=== PATIENT | male | born 1950 | race Hispanic/Latino ===

== ENCOUNTER 2018-05-02 10:19 | Emergency (ER) | payer OTHER ==
[2018-05-02] MEDS ORDERED: FLUORESCEIN SODIUM 0.6 MG/WRAP ONE ×2 (11:44)
[2018-05-02] MEDS ORDERED: TETRACAINE HCL 0.5% 2ML OPTH ONE ×2 (11:44)
[2018-05-02] MEDS ORDERED: NEO/BAC/POLY/HC OPTH OINT ONE (11:44)
--- NOTE | 2018-05-02 12:00 | EDPHYS ---
Physician Documentation [facility] Name: Naseem Sanches Jr Age: 67 yrs Sex: Male : 1950 Arrival Date: 05/02/2018 Time: 10:23 Bed 23 Private MD: Mukul Funez E ED Physician Tima Lan HPI: 05/02 11:02 This 67 yrs old Male presents to ER via Ambulatory with complaints of Eye cp Injury, Blurred Vision. 11:02 The patient is experiencing blurred vision, pain, redness, to the right eye. Onset: The cp symptoms/episode began/occurred yesterday. Patient does not utilize any form of vision correction. 11:02 Associated signs and symptoms: Pertinent negatives: dizziness, ear ache, fever, cp headache. 11:02 Severity of symptoms: in the emergency department the symptoms are unchanged despite cp home interventions. 11:02 Patient reports he was mowing yard yesterday when he felt like something struck him in cp the right eye. Patient reports history of vision loss in left eye. Historical: - Allergies: 10:37 No Known Allergies; aj1 - Home Meds: 10:37 None [Active]; aj1 - PMHx: 10:37 None; aj1 - PSHx: 10:37 None; aj1 - Immunization history:: Flu vaccine is not up to date. - Social history:: Smoking status: Patient/guardian denies using tobacco. - Ebola Screening: : Patient denies travel to an Ebola-affected area in the 21 days before illness onset. ROS: 11:10 Constitutional: Negative for body aches, chills, fever, poor PO intake. cp 11:10 Eyes: Positive for pain, redness, of the right eye, Negative for discharge, cp photophobia, vision loss. 11:10 ENT: Negative for drainage from ear(s), ear pain, sore throat, difficulty swallowing, difficulty handling secretions. 11:10 Cardiovascular: Negative for chest pain, edema, palpitations. 11:10 Respiratory: Negative for cough, shortness of breath, wheezing. 11:10 Abdomen/GI: Negative for abdominal pain, nausea, vomiting, and diarrhea. 11:10 Skin: Negative for cellulitis, rash. 11:10 Neuro: Negative for dizziness, headache, weakness. 11:10 All other systems are negative. Exam: 11:47 Visual Acuity: I have reviewed the nursing documentation. cp 11:47 Head/Face: Normocephalic, atraumatic. 11:47 Constitutional: The patient appears in no acute distress, alert, awake, non-toxic, well developed, well nourished. 11:47 Eyes: Periorbital structures: appear normal, Pupils: equal, round, and reactive to light and accomodation, Extraocular movements: intact throughout, Conjunctiva: subconjunctival hemorrhage(s), seen in the right eye, large, extending from approximately 3 o'clock area to 9 o'clock area, Corneas: abrasion, that is small, on the right, at 9 o'clock, foreign body, is not appreciated, a fluorescein strip employed to appreciate the findings, Anterior chamber: normal, no hyphema, on appreciated narrow angle closure, Lids and lashes: appear normal, on the right, other eye negative for acute changes. 11:47 ENT: External ear(s): are unremarkable, Nose: is normal, Mouth: Lips: moist, Oral mucosa: moist, Posterior pharynx: is normal, airway is patent. 11:47 Neck: ROM/movement: is normal, is supple, without pain, no range of motions limitations, no nuchal rigidity. 11:47 Chest/axilla: Inspection: normal. 11:47 Cardiovascular: Rate: normal. 11:47 Respiratory: the patient does not display signs of respiratory distress, Respirations: normal, no use of accessory muscles, no retractions, no splinting, no tachypnea. 11:47 Skin: cellulitis, is not appreciated, no rash present. Vital Signs: 10:37 BP 120 / 68; Pulse 60; Resp 18; Temp 97.5; Pulse Ox 95% on R/A; Weight 82.1 kg (R); aj1 Height 5 ft. 7 in. 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 cp 11:00 Differential diagnosis: Corneal abrasion of right eye. Foreign body in right eye. Acute cp iritis of right eye. Infectious conjunctivitis in. 12:00 Data reviewed: vital signs, nurses notes, and as a result, I will discharge patient. 12:00 Counseling: I had a detailed discussion with the patient and/or guardian regarding: the cp historical points, exam findings, and any diagnostic results supporting the discharge/admit diagnosis, the need for outpatient follow up, an opthalmologist, to return to the emergency department if symptoms worsen or persist or if there are any questions or concerns that arise at home. 05/02 10:57 Order name: Visual Acuity; Complete Time: 11:34 cp 05/02 10:57 Order name: Eye Tray; Complete Time: 11:38 cp 05/02 10:57 Order name: Fluoresene Opth strip; Complete Time: 11:38 cp Administered Medications: 11:51 Drug: Tetracaine Drops 0.5 % 1 drops Route: Ophthalmic; Site: right eye; ss 12:09 Drug: Gentamicin Drops 0.3 % 2 drops Route: Ophthalmic; Site: right eye; 12:09 Follow up: Response: Medication administered at discharge. Disposition: 12:30 Chart complete. cp 18:15 Co-signature as Attending Physician, Tima Lan MD. Disposition: 05/02/18 12:00 Discharged to Home. Impression: Injury of conjunctiva and corneal abrasion without foreign body, right eye, Right Subconjunctival Hemorrhage. - Condition is Stable. - Discharge Instructions: Corneal Abrasion, Subconjunctival Hemorrhage. - Prescriptions for Gentamicin 0.3 % Ophthalmic Drops - instill 1 drop by OPHTHALMIC route every 4 hours for 7 days; 1 bottle. - Medication Reconciliation Form, Thank You Letter, Antibiotic Education, Prescription Opioid Use form. - Follow up: Fantasma Ortiz MD; When: 1 - 2 days; Reason: Recheck today's complaints. - Problem is new. - Symptoms have improved. Signatures: Parisa Cervantes RN RN aj1 Julianna Nugyen RN RN ss Steven Guzman PA PA Tima Meier MD MD gs Corrections: (The following items were deleted from the chart) 12:12 12:00 05/02/2018 12:00 Discharged to Home. Impression: Injury of conjunctiva and ss corneal abrasion without foreign body, right eye; Right Subconjunctival Hemorrhage. Condition is Stable. Forms are Medication Reconciliation Form, Thank You Letter, Antibiotic Education, Prescription Opioid Use. Follow up: Fantasma Ortiz; When: 1 - 2 days; Reason: Recheck today's complaints. Problem is new. Symptoms have improved. cp
--- NOTE | 2018-05-02 12:00 | ER ---
Nurse's Notes [facility] Name: Naseem Sanches Jr Age: 67 yrs Sex: Male : 1950 Arrival Date: 05/02/2018 Time: 10:23 Bed 23 Private MD: Mukul Funez E Diagnosis: Injury of conjunctiva and corneal abrasion without foreign body, right eye;Right Subconjunctival Hemorrhage Presentation: 05/02 10:35 Presenting complaint: Patient states: He was mowing the yard yesterday and something aj1 hit him in the left eye. Reports pain to left eye, blurred vision. Dark red discoloration noted to lower part of sclera. Transition of care: patient was not received from another setting of care. The patient reports a positive loss of vision. The patient's loss of vision began 1 day ago. Onset of symptoms was May 01, 2018. Risk Assessment: Do you want to hurt yourself or someone else? Patient reports no desire to harm self or others. Initial Sepsis Screen: Does the patient meet any 2 criteria? No. Patient's initial sepsis screen is negative. Does the patient have a suspected source of infection? No. Patient's initial sepsis screen is negative. Care prior to arrival: None. 10:35 Method Of Arrival: Ambulatory aj1 10:35 Acuity: PARVIZ 2 aj1 Triage Assessment: 10:37 General: Appears in no apparent distress. comfortable, Behavior is calm, cooperative, aj1 appropriate for age. Pain: Complains of pain in right eye Pain currently is 5 out of 10 on a pain scale. EENT: Sclera/Cornea are reddened in outer aspect of conjuctiva of right eye and inner aspect of conjuctiva of right eye Reports blurred vision. Neuro: Level of Consciousness is awake, alert, obeys commands. Cardiovascular: Patient's skin is warm and dry. Respiratory: Airway is patent Respiratory effort is even, unlabored, Respiratory pattern is regular, symmetrical. Historical: - Allergies: 10:37 No Known Allergies; aj1 - Home Meds: 10:37 None [Active]; aj1 - PMHx: 10:37 None; aj1 - PSHx: 10:37 None; aj1 - Immunization history:: Flu vaccine is not up to date. - Social history:: Smoking status: Patient/guardian denies using tobacco. - Ebola Screening: : Patient denies travel to an Ebola-affected area in the 21 days before illness onset. Screenin:29 Abuse screen: Denies threats or abuse. Denies injuries from another. Nutritional ss screening: No deficits noted. Tuberculosis screening: Never had TB. Fall Risk None identified. Vital Signs: 10:37 BP 120 / 68; Pulse 60; Resp 18; Temp 97.5; Pulse Ox 95% on R/A; Weight 82.1 kg (R); aj1 Height 5 ft. 7 in. 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 as 10:23 Mukul Funez MD is Private Physician. as 10:36 Triage completed. aj1 10:37 Arm band placed on Patient placed in waiting room, Patient notified of wait time. aj1 10:55 Steven Guzman PA is PHCP. cp 10:55 Tima Lan MD is Attending Physician. cp 11:29 Julianna Nguyen, OSCAR is Primary Nurse. ss 11:29 Patient has correct armband on for positive identification. Bed in low position. Call ss light in reach. Side rails up X 1. 11:54 Fantasma Ortiz MD is Referral Physician. cp 12:11 No provider procedures requiring assistance completed. Patient did not have IV access ss during this emergency room visit. Administered Medications: 11:51 Drug: Tetracaine Drops 0.5 % 1 drops Route: Ophthalmic; Site: right eye; ss 12:09 Drug: Gentamicin Drops 0.3 % 2 drops Route: Ophthalmic; Site: right eye; ss 12:09 Follow up: Response: Medication administered at discharge. ss Outcome: 12:00 Discharge ordered by . cp 12:[address] Ortiz's office ss 12:11 Condition: good 12:11 Discharge instructions given to patient, family, Instructed on discharge instructions, follow up and referral plans. Demonstrated understanding of instructions, follow-up care, medications, Prescriptions given X 1. 12:12 Patient left the ED. ss Signatures: Parisa Cervantes RN RN aj1 Yahaira Tovar Shelby, RN RN ss Megan, KATIE Harris PA cp
[2018-05-02] MEDS ORDERED: GENTAMICIN 0.3% OPTH DROP 5ML ONE (12:10)
== END 2018-05-02 12:12 | disposition home or self-care (01) ==
LOC: ER 10:19
DX: S05.01XA Injury of conjunctiva and corneal abrasion without foreign body, right eye, initial encounter (principal); H11.31 Conjunctival hemorrhage, right eye; X58.XXXA Exposure to other specified factors, initial encounter; Y93.H9 Activity, other involving exterior property and land maintenance, building and construction; Y92.89 Other specified places as the place of occurrence of the external cause
CPT/HCPCS: 99283

== ENCOUNTER 2018-06-05 10:14 | Day surgery (SDC) | payer OTHER ==
[2018-06-04 10:32] LABS: Absolute Lymphocytes (CBC) 0.9 K/uL (0.7-4.9); Absolute Monocytes 0.6 K/uL (0.1-1.3); Absolute Neutrophil 5.3 K/uL (1.8-8.0); Basophils % 0.6 % (0-1.3); Lymphocytes % 12.8 % (15.3-44.8); MCH 32.5 pg (27.0-35.0); MCV 93.4 fL (80-100); MPV 10.1 fL (7.6-11.3); Monocytes % 8.7 % (3.3-12.3); RBC Red Blood Cell Count 5.35 M/uL (4.33-5.43)
[2018-06-04 10:33] LABS: Urine Appearance CLEAR; Urine Bilirubin NEGATIVE (NEG); Urine Blood 3+ (NEG); Urine Color YELLOW; Urine Glucose NEGATIVE (NEG); Urine Protein 1+ (NEG); Urine Urobilinogen 0.2 mg/dL (0.2-1.0)
[2018-06-04 10:35] LABS: Urine Microscopic Reflex ORDER UMIC
[2018-06-04 10:36] LABS: Protime INR 1.08
--- NOTE | 2018-06-04 10:44 | RAD REPORT ---
EXAM DESCRIPTION: RAD - Chest Pa And Lat (2 Views) - 06/04/2018 10:02 am CLINICAL HISTORY: Preop chest, patient pending bladder and kidney surgery COMPARISON: None. TECHNIQUE: PA and lateral views of the chest were obtained. FINDINGS: The lungs are clear. Heart size is normal and central vasculature is within normal limit s. No pleural effusion or pneumothorax seen. No acute bony finding noted. No aortic abnormality. IMPRESSION: No acute cardiopulmonary process.
[2018-06-04 10:50] LABS: Urine Bacteria 20-50 /HPF (NONE SEEN); Urine Culture Reflex Order NOT NEEDED; Urine Mucus SLIGHT /HPF (NONE SEEN); Urine RBC >50 /HPF (NONE SEEN)
[2018-06-04 10:53] LABS: Phosphorus 2.7 mg/dL (2.5-4.9); Uric Acid 4.1 mg/dL (3.5-7.2)
--- NOTE | 2018-06-04 14:01 | EKG ---
Test Date: 2018-06-04 Test Time: 10:39:09 Veneer Taper: [place] MEASUREMENT RESULTS: Intervals: Rate: 62 CO: 156 QRSD: 86 QT: 396 QTc: 401 [place]: P: 41 CO: 156 QRS: -35 T: 39 INTERPRETIVE STATEMENTS: Normal sinus rhythm Left axis deviation Abnormal ECG Compared to ECG 03/19/2015 13:13:27 Left-axis deviation now present Sinus bradycardia no longer present Left ventricular hypertrophy no longer present Electronically Signed On 06-04-18 14:01:01 AUTOMATIC SILK SCREEN PRINTER by Levon Mosqueda
[2018-06-05] MEDS ORDERED: Ringers Lactate 1,000 ML IV ONE (10:47)
--- NOTE | 2018-06-05 11:35 | RAD REPORT ---
EXAM DESCRIPTION: RAD - Abdomen 1 View (KUB) - 06/05/2018 11:20 am CLINICAL HISTORY: PRESURGICAL XRAY Pain COMPARISON: Abdomen Pelvis W Contrast dated 05/17/2018 FINDINGS: The bowel gas pattern is non-obstructive. No evidence of free air or pneumatosis. Several much small to moderate-size left caliceal calcifications are seen. A large 2 cm stone is present in t he left renal pelvis. No right-sided renal calculus seen.
[2018-06-05] MEDS ORDERED: PROPOFOL 200 MG/20 ML VIAL IV ONE (12:53)
[2018-06-05] MEDS ORDERED: MIDAZOLAM HCL 2 MG/2 ML INJ ONE (12:54)
[2018-06-05] MEDS ORDERED: LIDOCAINE 2% MPF 5 ML VIAL ONE (12:54)
[2018-06-05] MEDS ORDERED: FENTANYL CITR 100 MCG/2 ML ONE (12:54)
[2018-06-05] MEDS: GENTAMICIN 100 MG/100 ML BAG 100 MG/100 ML BAG IV ONE ×3 (13:08→13:35)
[2018-06-05] MEDS ORDERED: GLYCOPYRROLATE 0.2 MG/ML SYR ONE (13:55)
[2018-06-05] MEDS ORDERED: Mastisol Adhesive Liq ONE (14:04)
[2018-06-05] MEDS ORDERED: KETOROLAC 30 MG/ML INJ ONE (14:12)
[2018-06-05] MEDS ORDERED: EPHEDRINE SULF 50 MG/10 ML SYR ONE (14:24)
== END 2018-06-05 15:05 | disposition home or self-care (01) ==
LOC: OR 10:14
PROVIDERS: ATTEND Urology
PROC: 0T7D8DZ Dilation of Urethra with Intraluminal Device, Via Natural or Artificial Opening Endoscopic (ICD-10-PCS; principal; 2018-06-05 13:00)
PROC: 0T778DZ Dilation of Left Ureter with Intraluminal Device, Via Natural or Artificial Opening Endoscopic (ICD-10-PCS; 2018-06-05 13:00)
DX: N20.2 Calculus of kidney with calculus of ureter (principal); Q62.39 Other obstructive defects of renal pelvis and ureter; N40.1 Benign prostatic hyperplasia with lower urinary tract symptoms; R39.12 Poor urinary stream; N32.81 Overactive bladder; R97.20 Elevated prostate specific antigen [PSA]; G30.8 Other Alzheimer's disease; F01.50 Vascular dementia, unspecified severity, without behavioral disturbance, psychotic disturbance, mood disturbance, and anxiety; G91.9 Hydrocephalus, unspecified
CPT/HCPCS: 36415; 50590; 52332; 71046; 74018; 80048; 84100; 84550; 85025; 85610; 85730; 87086; 87088; 93005; C9739; G0103; J1580; J2250; J2704; J3010; Q9967; 81003; 81015

== ENCOUNTER 2018-07-03 09:00 | Day surgery (SDC) | payer OTHER ==
[2018-07-03] MEDS ORDERED: Ringers Lactate 1,000 ML IV ONE (09:53)
[2018-07-03] MEDS ORDERED: GENTAMICIN 100 MG/100 ML BAG 100 MG/100 ML BAG IV ONE (09:53)
[2018-07-03] MEDS ORDERED: PROPOFOL 200 MG/20 ML VIAL IV ONE (10:36)
[2018-07-03] MEDS ORDERED: FENTANYL CITR 100 MCG/2 ML ONE (10:36)
[2018-07-03] MEDS ORDERED: MIDAZOLAM HCL 2 MG/2 ML INJ ONE (10:37)
[2018-07-03] MEDS ORDERED: ONDANSETRON 4 MG/2 ML VIAL ONE (10:39)
[2018-07-03] MEDS ORDERED: LIDOCAINE 1% MPF 2 ML AMPULE ONE (10:39)
[2018-07-03] MEDS ORDERED: EPHEDRINE SULF 50 MG/10 ML SYR ONE (10:58)
[2018-07-03] MEDS ORDERED: GLYCOPYRROLATE 0.2 MG/ML SYR ONE ×2 (11:05→11:07)
== END 2018-07-03 13:35 | disposition home or self-care (01) ==
LOC: PRE 09:00 → OR 13:35
PROVIDERS: ATTEND Urology
PROC: 0TF4XZZ Fragmentation in Left Kidney Pelvis, External Approach (ICD-10-PCS; principal; 2018-07-03 10:00)
DX: N20.0 Calculus of kidney (principal); Q62.39 Other obstructive defects of renal pelvis and ureter; G30.8 Other Alzheimer's disease; F01.50 Vascular dementia, unspecified severity, without behavioral disturbance, psychotic disturbance, mood disturbance, and anxiety; N40.1 Benign prostatic hyperplasia with lower urinary tract symptoms; R39.12 Poor urinary stream; N32.81 Overactive bladder; D29.1 Benign neoplasm of prostate
CPT/HCPCS: 50590 ×2; J1580; J2001; J2250; J2405; J2704; J3010